=== PATIENT | female | born 1960 | race Caucasian/White ===

== ENCOUNTER → 2016-11-28 | Outpatient (CLI) | payer BC | LOC: LAB 15:43 | DX: E13.9 Other specified diabetes mellitus without complications (principal); E78.00 Pure hypercholesterolemia, unspecified ==

== ENCOUNTER 2017-11-26 15:21 | Observation (INO) | payer BC ==
[~2017-11-26] VITALS: Ht 175.3 cm; Wt 104.5 kg
[2017-11-26 16:10] LABS: URINE APPEARANCE CLEAR; URINE BILIRUBIN NEGATIVE (NEGATIVE); URINE BLOOD NEGATIVE (NEGATIVE); URINE COLOR YELLOW; URINE KETONE 2+ (NEGATIVE); URINE NITRATE NEGATIVE (NEGATIVE); URINE PROTEIN(semi-quant) NEGATIVE (NEGATIVE); URINE UROBILINOGEN NORMAL (NORMAL)
[2017-11-26 16:11] LABS: URINE LEUKOCYTE ESTERASE TRACE (NEGATIVE)
[2017-11-26 16:15] LABS: EOS # 0.1 (0.04-0.40); EOS % 0.9 % (1.0-5.0); HEMATOCRIT 38.2 % (37.0-47.0); HEMOGLOBIN 12.6 g/dL (12.5-16.0); LYMPH# 1.4 (1.50-4.00); MEAN CELL VOLUME 87 fl (78-100); MEAN CORPUSCULAR HEMOGLOBIN 29 pg (27-31); MEAN CORPUSCULAR HGB CONC 33 g/dL (33-37); MONO # 1.1 (0.20-0.80); NEU # 8.4 (1.40-6.50); PLATELET COUNT 258 K/mm3 (130-400); RED BLOOD COUNT 4.39 M/mm3 (4.10-5.30); RED CELL DISTRIBUTION WIDTH 12.8 % (11.5-14.5); WHITE BLOOD COUNT 10.9 K/mm3 (4.8-10.8)
[2017-11-26 16:35] LABS: ALBUMIN 3.9 g/dL (3.5-5.0); CALCIUM 8.8 mg/dL (8.4-10.2); POTASSIUM 4.2 mmol/L (3.6-5.0); TOTAL BILIRUBIN 0.8 mg/dL (0.2-1.3); TOTAL PROTEIN 6.7 g/dL (6.3-8.2)
[2017-11-26] MEDS ORDERED: GLIPIZIDE10 M2 PO (18:45)
[2017-11-26] MEDS ORDERED: NOVOLOG FLEX100 U/ML SQ (18:45)
[2017-11-26] MEDS ORDERED: ALLOPURINOL300 M1 PO (18:45)
[2017-11-26] MEDS ORDERED: METOPROLOL TAR100 M1 PO (18:45)
[2017-11-26] MEDS ORDERED: MELOXICAM7.5 MG PO (18:45)
[2017-11-26] MEDS ORDERED: METFORMIN HYD1000 MG PO (18:45)
[2017-11-26] MEDS ORDERED: AMITRIPTYLINE H10 M2 PO (18:45)
[2017-11-26] MEDS ORDERED: LANTUS SOLOS100 U/ML SQ (18:46)
[2017-11-26 19:31] VITALS: BP 178/101
[2017-11-26 19:37] VITALS: BP 178/101
[2017-11-26 19:46] VITALS: BP 178/101
[2017-11-26] MEDS ORDERED: LISINOPRIL40 MG PO (19:59)
[2017-11-26] MEDS ORDERED: AMLODIPINE BESYL5 MG PO (20:00)
[2017-11-26] MEDS ORDERED: LOVASTATIN20 M1 PO (20:00)
[2017-11-26] MEDS ORDERED: ASPIRIN E.C. 8181 MG PO (20:01)
[2017-11-26 20:34] LABS: CALCIUM 8.4 mg/dL (8.4-10.2); POTASSIUM 4.3 mmol/L (3.6-5.0)
[2017-11-26 22:52] VITALS: BP 180/86
[2017-11-27 00:37] LABS: URINE APPEARANCE HAZY; URINE BILIRUBIN NEGATIVE (NEGATIVE); URINE BLOOD NEGATIVE (NEGATIVE); URINE COLOR YELLOW; URINE KETONE 2+ (NEGATIVE); URINE LEUKOCYTE ESTERASE TRACE (NEGATIVE); URINE NITRATE NEGATIVE (NEGATIVE); URINE PROTEIN(semi-quant) NEGATIVE (NEGATIVE); URINE UROBILINOGEN NORMAL (NORMAL)
[2017-11-27 02:50] VITALS: BP 184/82
[2017-11-27 06:32] VITALS: BP 146/63
[2017-11-27 07:16] LABS: CALCIUM 8.3 mg/dL (8.4-10.2); POTASSIUM 3.7 mmol/L (3.6-5.0)
[2017-11-27 07:49] LABS: EOS # 0.2 (0.04-0.40); EOS % 1.7 % (1.0-5.0); HEMATOCRIT 33.1 % (37.0-47.0); HEMOGLOBIN 10.9 g/dL (12.5-16.0); LYMPH# 2.6 (1.50-4.00); MEAN CELL VOLUME 88 fl (78-100); MEAN CORPUSCULAR HEMOGLOBIN 29 pg (27-31); MEAN CORPUSCULAR HGB CONC 33 g/dL (33-37); MONO # 1.1 (0.20-0.80); NEU # 6.4 (1.40-6.50); PLATELET COUNT 262 K/mm3 (130-400); RED BLOOD COUNT 3.76 M/mm3 (4.10-5.30); RED CELL DISTRIBUTION WIDTH 12.9 % (11.5-14.5); WHITE BLOOD COUNT 10.3 K/mm3 (4.8-10.8)
[2017-11-27 07:54] LABS: ALBUMIN 3.1 g/dL (3.5-5.0); TOTAL BILIRUBIN 0.6 mg/dL (0.2-1.3); TOTAL PROTEIN 5.9 g/dL (6.3-8.2)
[2017-11-27] MEDS ORDERED: CIPRO500 M1 PO (08:32)
[2017-11-27] MEDS ORDERED: VIBRAMYCIN HYC100 MG PO (08:32)
[2017-11-27 09:17] LABS: URINE MUCUS PRESENT (NOT PRESENT)
[2017-11-28 08:40] LABS: URINE APPEARANCE CLEAR; URINE BILIRUBIN NEGATIVE (NEGATIVE); URINE BLOOD NEGATIVE (NEGATIVE); URINE COLOR YELLOW; URINE KETONE 1+ (NEGATIVE); URINE LEUKOCYTE ESTERASE NEGATIVE (NEGATIVE); URINE NITRATE NEGATIVE (NEGATIVE); URINE PROTEIN(semi-quant) NEGATIVE (NEGATIVE); URINE UROBILINOGEN NORMAL (NORMAL)
== END 2017-11-27 11:00 | disposition home or self-care (01) ==
LOC: ED 15:21 → MED/SURG 18:02
PROVIDERS: Family Medicine; Nurse Practitioner Primary Care; ADMIT Nurse Practitioner Family
DX: E11.10 Type 2 diabetes mellitus with ketoacidosis without coma (principal); L03.116 Cellulitis of left lower limb; S91.312A Laceration without foreign body, left foot, initial encounter; E11.42 Type 2 diabetes mellitus with diabetic polyneuropathy; W45.8XXA Other foreign body or object entering through skin, initial encounter; Z79.4 Long term (current) use of insulin; I10 Essential (primary) hypertension; E78.00 Pure hypercholesterolemia, unspecified; M10.9 Gout, unspecified; T38.3X6A Underdosing of insulin and oral hypoglycemic [antidiabetic] drugs, initial encounter; Z91.120 Patient's intentional underdosing of medication regimen due to financial hardship; Z89.421 Acquired absence of other right toe(s); Z79.899 Other long term (current) drug therapy; Z79.82 Long term (current) use of aspirin; Z88.0 Allergy status to penicillin; Z23 Encounter for immunization
CPT/HCPCS: 90715; G0378; J0696; J1815; J3480

== ENCOUNTER → 2017-12-16 | Outpatient (CLI) | payer BC ==
[2017-11-27 06:32] VITALS: BP 146/63
[~2017-12-16] MED LIST: ALLOPURINOL300 M1 PO; AMITRIPTYLINE H10 M2 PO; AMLODIPINE BESYL5 MG PO; ASPIRIN E.C. 8181 MG PO; CIPRO500 M1 PO; GLIPIZIDE10 M2 PO; INSULIN 70/3100 U/ML SQ; LANTUS SOLOS100 U/ML SQ; LISINOPRIL40 MG PO; LOVASTATIN20 M1 PO; MELOXICAM7.5 MG PO; METFORMIN HYD1000 MG PO; METOPROLOL TAR100 M1 PO; NOVOLOG FLEX100 U/ML SQ; VIBRAMYCIN HYC100 MG PO
== END ==
LOC: RAD 11:37
DX: R60.0 Localized edema (principal); M86.8X7 Other osteomyelitis, ankle and foot
CPT/HCPCS: A9585

== ENCOUNTER → 2017-12-18 | Outpatient (CLI) | payer BC ==
[~2017-12-18] VITALS: Ht 175.3 cm; Wt 104.5 kg
[2017-12-18 15:20] VITALS: BP 158/103
[2017-12-18 15:20] LABS: BASO # 0.1 (0.02-0.10); EOS # 0.3 (0.04-0.40); EOS % 5.2 % (1.0-5.0); HEMATOCRIT 39.4 % (37.0-47.0); HEMOGLOBIN 12.8 g/dL (12.5-16.0); LYMPH# 2.6 (1.50-4.00); MEAN CELL VOLUME 89 fl (78-100); MEAN CORPUSCULAR HEMOGLOBIN 29 pg (27-31); MEAN CORPUSCULAR HGB CONC 33 g/dL (33-37); MONO # 0.5 (0.20-0.80); PLATELET COUNT 357 K/mm3 (130-400); RED BLOOD COUNT 4.45 M/mm3 (4.10-5.30); RED CELL DISTRIBUTION WIDTH 13.5 % (11.5-14.5); WHITE BLOOD COUNT 6.5 K/mm3 (4.8-10.8)
[2017-12-18 15:25] LABS: ALBUMIN 4.2 g/dL (3.5-5.0); CALCIUM 9.1 mg/dL (8.4-10.2); POTASSIUM 4.3 mmol/L (3.6-5.0); TOTAL BILIRUBIN 0.8 mg/dL (0.2-1.3); TOTAL PROTEIN 7.2 g/dL (6.3-8.2)
[2017-12-18 15:57] LABS: URINE APPEARANCE CLEAR; URINE BILIRUBIN NEGATIVE (NEGATIVE); URINE BLOOD NEGATIVE (NEGATIVE); URINE COLOR YELLOW; URINE KETONE NEGATIVE (NEGATIVE); URINE LEUKOCYTE ESTERASE NEGATIVE (NEGATIVE); URINE NITRATE NEGATIVE (NEGATIVE); URINE PROTEIN(semi-quant) TRACE mg/dL (NEGATIVE); URINE UROBILINOGEN NORMAL (NORMAL)
== END ==
LOC: AMSURD 14:42
PROVIDERS: Family Medicine
DX: Z01.818 Encounter for other preprocedural examination (principal); E11.9 Type 2 diabetes mellitus without complications

== ENCOUNTER → 2017-12-27 | Outpatient (CLI) | payer BC ==
[2017-12-18 15:20] VITALS: BP 158/103
== END ==
LOC: CARDLAB 09:25 → CARDREHAB 10:42
DX: Z01.810 Encounter for preprocedural cardiovascular examination (principal); I44.7 Left bundle-branch block, unspecified; Z82.49 Family history of ischemic heart disease and other diseases of the circulatory system
CPT/HCPCS: A9500

== ENCOUNTER → 2018-02-07 | Outpatient (CLI) | payer BC ==
[2017-12-18 15:20] VITALS: BP 158/103
[2018-02-07 16:14] LABS: ALBUMIN 4.4 g/dL (3.5-5.0); CALCIUM 9.5 mg/dL (8.4-10.2); POTASSIUM 4.6 mmol/L (3.6-5.0); TOTAL BILIRUBIN 1.1 mg/dL (0.2-1.3); TOTAL PROTEIN 7.1 g/dL (6.3-8.2)
== END ==
LOC: LAB 15:43
PROVIDERS: Family Medicine
DX: Z01.812 Encounter for preprocedural laboratory examination (principal)

== ENCOUNTER → 2018-07-29 | Outpatient (CLI) | payer BC ==
[2017-12-18 15:20] VITALS: BP 158/103
== END ==
LOC: MAMMO 15:03
DX: Z12.31 Encounter for screening mammogram for malignant neoplasm of breast (principal)

== ENCOUNTER → 2018-08-08 | Outpatient (CLI) | payer BC ==
[2017-12-18 15:20] VITALS: BP 158/103
== END ==
LOC: RAD 16:10
DX: R50.9 Fever, unspecified (principal); R05 Cough

== ENCOUNTER → 2018-10-13 | Outpatient (CLI) | payer BC ==
[2017-12-18 15:20] VITALS: BP 158/103
[2018-10-13 14:48] LABS: BASO # 0.1 (0.02-0.10); EOS # 0.2 (0.04-0.40); EOS % 2.1 % (1.0-5.0); HEMATOCRIT 42.1 % (37.0-47.0); HEMOGLOBIN 13.9 g/dL (12.5-16.0); LYMPH# 2.7 (1.50-4.00); MEAN CELL VOLUME 85 fl (78-100); MEAN CORPUSCULAR HEMOGLOBIN 28 pg (27-31); MEAN CORPUSCULAR HGB CONC 33 g/dL (33-37); MEAN PLATELET VOLUME 9.9 fl (7.4-10.4); MONO # 0.7 (0.20-0.80); PLATELET COUNT 302 K/mm3 (130-400); RED BLOOD COUNT 4.94 M/mm3 (4.10-5.30); RED CELL DISTRIBUTION WIDTH 13.2 % (11.5-14.5); WHITE BLOOD COUNT 7.6 K/mm3 (4.8-10.8)
[2018-10-13 14:53] LABS: POTASSIUM 4.4 mmol/L (3.5-5.1)
[2018-10-13 14:54] LABS: CALCIUM 9.7 mg/dL (8.3-10.5)
[2018-10-13 14:56] LABS: TOTAL PROTEIN 7.2 g/dL (6.4-8.3)
[2018-10-13 14:58] LABS: TOTAL BILIRUBIN 0.9 mg/dL (0.2-1.2)
[2018-10-13 15:55] LABS: URINE APPEARANCE HAZY; URINE COLOR YELLOW
[2018-10-13 15:56] LABS: URINE BILIRUBIN NEGATIVE (NEGATIVE); URINE BLOOD TRACE (NEGATIVE); URINE GLUCOSE NEGATIVE (NEGATIVE); URINE KETONE NEGATIVE (NEGATIVE); URINE LEUKOCYTE ESTERASE 2+ (NEGATIVE); URINE MUCUS PRESENT (NOT PRESENT); URINE NITRATE NEGATIVE (NEGATIVE); URINE PROTEIN(semi-quant) 1+ mg/dL (NEGATIVE); URINE UROBILINOGEN NORMAL (NORMAL); URINE WBC >50 /hpf (0-3)
== END ==
LOC: LAB 14:25
PROVIDERS: Family Medicine
DX: Z00.00 Encounter for general adult medical examination without abnormal findings (principal); E55.9 Vitamin D deficiency, unspecified; E78.00 Pure hypercholesterolemia, unspecified; E11.9 Type 2 diabetes mellitus without complications; R30.0 Dysuria

== ENCOUNTER → 2018-10-27 | Outpatient (CLI) | payer BC ==
[2017-12-18 15:20] VITALS: BP 158/103
[2018-10-27 14:08] LABS: URINE APPEARANCE CLEAR; URINE COLOR YELLOW; URINE PROTEIN(semi-quant) NEGATIVE (NEGATIVE)
[2018-10-27 14:09] LABS: URINE BILIRUBIN NEGATIVE (NEGATIVE); URINE BLOOD NEGATIVE (NEGATIVE); URINE KETONE NEGATIVE (NEGATIVE); URINE LEUKOCYTE ESTERASE 1+ (NEGATIVE); URINE NITRATE NEGATIVE (NEGATIVE); URINE UROBILINOGEN NORMAL (NORMAL)
== END ==
LOC: LAB 13:37
PROVIDERS: Family Medicine
DX: R30.0 Dysuria (principal)

== ENCOUNTER 2018-12-03 18:37 | Emergency (ER) | payer BC ==
[~2018-12-03] VITALS: Ht 175.3 cm; Wt 97.3 kg
[2018-12-03 19:33] LABS: URINE APPEARANCE HAZY; URINE COLOR YELLOW; URINE PROTEIN(semi-quant) TRACE mg/dL (NEGATIVE)
[2018-12-03 19:34] LABS: URINE BILIRUBIN NEGATIVE (NEGATIVE); URINE BLOOD NEGATIVE (NEGATIVE); URINE KETONE NEGATIVE (NEGATIVE); URINE NITRATE NEGATIVE (NEGATIVE); URINE UROBILINOGEN NORMAL (NORMAL)
[2018-12-03 19:36] LABS: URINE LEUKOCYTE ESTERASE NEGATIVE (NEGATIVE)
[2018-12-03 19:56] LABS: EOS # 0.2 (0.04-0.40); EOS % 1.6 % (1.0-5.0); HEMATOCRIT 33.4 % (37.0-47.0); HEMOGLOBIN 10.6 g/dL (12.5-16.0); LYMPH# 2.5 (1.50-4.00); MEAN CELL VOLUME 81 fl (78-100); MEAN CORPUSCULAR HEMOGLOBIN 26 pg (27-31); MEAN CORPUSCULAR HGB CONC 32 g/dL (33-37); MONO # 0.5 (0.20-0.80); NEU # 5.9 (1.40-6.50); PLATELET COUNT 371 K/mm3 (130-400); RED BLOOD COUNT 4.13 M/mm3 (4.10-5.30); RED CELL DISTRIBUTION WIDTH 14.4 % (11.5-14.5); WHITE BLOOD COUNT 9.1 K/mm3 (4.8-10.8)
[2018-12-03 19:57] LABS: ALBUMIN 4.1 g/dL (3.5-5.0); POTASSIUM 4.4 mmol/L (3.5-5.1)
[2018-12-03 19:58] LABS: CALCIUM 9.5 mg/dL (8.3-10.5)
[2018-12-03 20:00] LABS: TOTAL PROTEIN 7.6 g/dL (6.4-8.3)
[2018-12-03 20:01] LABS: TOTAL BILIRUBIN 0.9 mg/dL (0.2-1.2)
[2018-12-03 20:08] LABS: MEAN PLATELET VOLUME 12.3 fl (7.4-10.4)
[2018-12-03] MEDS ORDERED: CYCLOBENZAPRINE10 M1 PO (22:13)
[2018-12-03 22:28] VITALS: BP 175/90
== END 2018-12-03 22:45 | disposition home or self-care (01) ==
LOC: ED 18:37
PROVIDERS: Physician Assistant
DX: E11.65 Type 2 diabetes mellitus with hyperglycemia (principal); I16.0 Hypertensive urgency; M54.9 Dorsalgia, unspecified; I10 Essential (primary) hypertension; M10.9 Gout, unspecified; Z79.4 Long term (current) use of insulin; Z90.710 Acquired absence of both cervix and uterus; Z90.49 Acquired absence of other specified parts of digestive tract; Z98.890 Other specified postprocedural states; Z88.0 Allergy status to penicillin; Z88.5 Allergy status to narcotic agent; Z79.82 Long term (current) use of aspirin
CPT/HCPCS: J1885; J2360; J2405; J3010; J7030

== ENCOUNTER 2019-02-27 02:12 | Emergency (ER) | payer BC ==
[~2019-02-27] VITALS: Ht 175.3 cm; Wt 104.5 kg
[~2019-02-27 02:12] MED LIST changes: +CYCLOBENZAPRINE10 M1 PO
[2019-02-27] MEDS ORDERED: HCTZ 25MG25 MG PO (02:25)
[2019-02-27 02:41] LABS: BASO # 0.1 (0.02-0.10); EOS # 0.1 (0.04-0.40); EOS % 1.1 % (1.0-5.0); HEMATOCRIT 42.8 % (37.0-47.0); MEAN CELL VOLUME 86 fl (78-100); MEAN CORPUSCULAR HEMOGLOBIN 28 pg (27-31); MEAN CORPUSCULAR HGB CONC 33 g/dL (33-37); MONO # 0.8 (0.20-0.80); NEU # 4.9 (1.40-6.50); PLATELET COUNT 332 K/mm3 (130-400); RED BLOOD COUNT 4.96 M/mm3 (4.10-5.30); RED CELL DISTRIBUTION WIDTH 12.6 % (11.5-14.5)
[2019-02-27 02:52] LABS: POTASSIUM 4.9 mmol/L (3.5-5.1)
[2019-02-27 02:53] LABS: ALBUMIN 4.3 g/dL (3.5-5.0)
[2019-02-27 02:54] LABS: CALCIUM 9.2 mg/dL (8.3-10.5)
[2019-02-27 02:56] LABS: TOTAL PROTEIN 7.4 g/dL (6.4-8.3)
[2019-02-27 04:13] LABS: URINE APPEARANCE HAZY; URINE BILIRUBIN NEGATIVE (NEGATIVE); URINE BLOOD NEGATIVE (NEGATIVE); URINE COLOR YELLOW; URINE KETONE NEGATIVE (NEGATIVE); URINE LEUKOCYTE ESTERASE 1+ (NEGATIVE); URINE NITRATE NEGATIVE (NEGATIVE); URINE PROTEIN(semi-quant) TRACE mg/dL (NEGATIVE); URINE UROBILINOGEN NORMAL (NORMAL)
[2019-02-27 05:15] VITALS: BP 194/104
== END 2019-02-27 05:15 | disposition short-term general hospital (02) ==
LOC: ED 02:12
PROVIDERS: Nurse Practitioner Family
DX: E11.10 Type 2 diabetes mellitus with ketoacidosis without coma (principal); E11.65 Type 2 diabetes mellitus with hyperglycemia; N39.0 Urinary tract infection, site not specified; E11.40 Type 2 diabetes mellitus with diabetic neuropathy, unspecified; I10 Essential (primary) hypertension; E78.5 Hyperlipidemia, unspecified; M10.9 Gout, unspecified; Z79.4 Long term (current) use of insulin; Z79.82 Long term (current) use of aspirin; Z89.421 Acquired absence of other right toe(s); Z90.710 Acquired absence of both cervix and uterus
CPT/HCPCS: A4216; J0696; J1815; J1885; J2405; J3480; J7030

== ENCOUNTER → 2019-03-17 | Outpatient (CLI) | payer BC ==
[2019-02-27 05:15] VITALS: BP 194/104
[~2019-03-17] MED LIST changes: +HCTZ 25MG25 MG PO
[2019-03-17 14:53] LABS: URINE APPEARANCE CLEAR; URINE BILIRUBIN NEGATIVE (NEGATIVE); URINE BLOOD NEGATIVE (NEGATIVE); URINE COLOR YELLOW; URINE KETONE NEGATIVE (NEGATIVE); URINE LEUKOCYTE ESTERASE TRACE (NEGATIVE); URINE NITRATE NEGATIVE (NEGATIVE); URINE PROTEIN(semi-quant) TRACE mg/dL (NEGATIVE); URINE UROBILINOGEN NORMAL (NORMAL)
== END ==
LOC: LAB 14:03
PROVIDERS: Family Medicine
DX: R39.9 Unspecified symptoms and signs involving the genitourinary system (principal)

== ENCOUNTER 2019-06-13 10:38 | Emergency (ER) | payer BC ==
[~2019-06-13] VITALS: Ht 175.3 cm; Wt 93.2 kg
[2019-06-13 11:03] LABS: EOS # 0.2 (0.04-0.40); EOS % 1.1 % (1.0-5.0); HEMATOCRIT 39.1 % (37.0-47.0); HEMOGLOBIN 12.3 g/dL (12.5-16.0); LYMPH# 1.9 (1.50-4.00); MEAN CELL VOLUME 87 fl (78-100); MEAN CORPUSCULAR HEMOGLOBIN 27 pg (27-31); MEAN CORPUSCULAR HGB CONC 32 g/dL (33-37); MEAN PLATELET VOLUME 9.8 fl (7.4-10.4); MONO # 1.5 (0.20-0.80); NEU # 10.3 (1.40-6.50); PLATELET COUNT 405 K/mm3 (130-400); RED BLOOD COUNT 4.51 M/mm3 (4.10-5.30); RED CELL DISTRIBUTION WIDTH 12.7 % (11.5-14.5); WHITE BLOOD COUNT 13.9 K/mm3 (4.8-10.8)
[2019-06-13 11:08] LABS: ALBUMIN 3.7 g/dL (3.5-5.0)
[2019-06-13 11:09] LABS: POTASSIUM 3.8 mmol/L (3.5-5.1)
[2019-06-13 11:10] LABS: CALCIUM 9.8 mg/dL (8.3-10.5)
[2019-06-13 11:11] LABS: TOTAL PROTEIN 7.4 g/dL (6.4-8.3)
[2019-06-13 11:13] LABS: TOTAL BILIRUBIN 0.6 mg/dL (0.2-1.2)
[2019-06-13] MEDS ORDERED: ZOFRAN ODT4 MG PO (13:22)
[2019-06-13 13:45] LABS: URINE APPEARANCE CLOUDY; URINE COLOR DK YELLOW; URINE PROTEIN(semi-quant) TRACE mg/dL (NEGATIVE)
[2019-06-13 13:46] LABS: URINE BILIRUBIN NEGATIVE (NEGATIVE); URINE BLOOD TRACE (NEGATIVE); URINE KETONE 1+ (NEGATIVE); URINE LEUKOCYTE ESTERASE TRACE (NEGATIVE); URINE MUCUS PRESENT (NOT PRESENT); URINE NITRATE NEGATIVE (NEGATIVE); URINE UROBILINOGEN NORMAL (NORMAL)
[2019-06-13 15:29] VITALS: BP 163/88
== END 2019-06-13 15:26 | disposition short-term general hospital (02) ==
LOC: ED 10:38
PROVIDERS: Family Medicine
DX: E11.628 Type 2 diabetes mellitus with other skin complications (principal); L02.611 Cutaneous abscess of right foot; L03.115 Cellulitis of right lower limb; R05 Cough; R50.9 Fever, unspecified; I10 Essential (primary) hypertension; Z79.4 Long term (current) use of insulin; Z90.710 Acquired absence of both cervix and uterus; Z90.89 Acquired absence of other organs; Z20.828 Contact with and (suspected) exposure to other viral communicable diseases
CPT/HCPCS: J2405; J3370; J7030; J7050

== ENCOUNTER → 2019-08-18 | Outpatient (CLI) | payer BC ==
[~2019-08-18] MED LIST changes: +ZOFRAN ODT4 MG PO
[2019-08-18 14:07] LABS: BASO # 0.1 (0.02-0.10); EOS # 0.3 (0.04-0.40); EOS % 4.3 % (1.0-5.0); HEMATOCRIT 35.7 % (37.0-47.0); HEMOGLOBIN 11.1 g/dL (12.5-16.0); LYMPH# 3.1 (1.50-4.00); MEAN CELL VOLUME 87 fl (78-100); MEAN CORPUSCULAR HEMOGLOBIN 27 pg (27-31); MEAN CORPUSCULAR HGB CONC 31 g/dL (33-37); MEAN PLATELET VOLUME 9.4 fl (7.4-10.4); MONO # 0.6 (0.20-0.80); NEU # 2.8 (1.40-6.50); PLATELET COUNT 386 K/mm3 (130-400); RED BLOOD COUNT 4.12 M/mm3 (4.10-5.30); RED CELL DISTRIBUTION WIDTH 14.9 % (11.5-14.5)
[2019-08-18 14:16] LABS: ALBUMIN 4.1 g/dL (3.5-5.0)
[2019-08-18 14:17] LABS: CALCIUM 9.4 mg/dL (8.3-10.5)
[2019-08-18 14:18] LABS: TOTAL PROTEIN 7.1 g/dL (6.4-8.3)
[2019-08-18 14:20] LABS: TOTAL BILIRUBIN 0.5 mg/dL (0.2-1.2)
[2019-08-18 14:57] LABS: ERYTHROCYTE SEDIMENTATION RATE 48 mm/hr (0-30)
== END ==
LOC: LAB 13:54
PROVIDERS: Internal Medicine Infectious Disease
DX: E11.610 Type 2 diabetes mellitus with diabetic neuropathic arthropathy (principal); E11.621 Type 2 diabetes mellitus with foot ulcer; E11.40 Type 2 diabetes mellitus with diabetic neuropathy, unspecified

== ENCOUNTER → 2019-09-01 | Outpatient (CLI) | payer BC ==
[2019-09-03 08:47] LABS: BASO # 0.1 (0.02-0.10); EOS # 0.2 (0.04-0.40); EOS % 3.9 % (1.0-5.0); HEMATOCRIT 36.1 % (37.0-47.0); HEMOGLOBIN 11.2 g/dL (12.5-16.0); LYMPH# 2.3 (1.50-4.00); MEAN CELL VOLUME 87 fl (78-100); MEAN CORPUSCULAR HEMOGLOBIN 27 pg (27-31); MEAN CORPUSCULAR HGB CONC 31 g/dL (33-37); MEAN PLATELET VOLUME 10.8 fl (7.4-10.4); MONO # 0.5 (0.20-0.80); PLATELET COUNT 407 K/mm3 (130-400); RED BLOOD COUNT 4.15 M/mm3 (4.10-5.30); RED CELL DISTRIBUTION WIDTH 14.9 % (11.5-14.5); WHITE BLOOD COUNT 6.2 K/mm3 (4.8-10.8)
[2019-09-03 10:45] LABS: ERYTHROCYTE SEDIMENTATION RATE 23 mm/hr (0-30)
[2019-09-03 11:23] LABS: CALCIUM 8.9 mg/dL (8.3-10.5); TOTAL BILIRUBIN 0.4 mg/dL (0.2-1.2)
[2019-09-03 11:24] LABS: POTASSIUM 6.6 mmol/L (3.5-5.1)
== END ==
LOC: LAB 16:22
PROVIDERS: Family Medicine
DX: E11.610 Type 2 diabetes mellitus with diabetic neuropathic arthropathy (principal); E11.621 Type 2 diabetes mellitus with foot ulcer; E11.40 Type 2 diabetes mellitus with diabetic neuropathy, unspecified

== ENCOUNTER → 2019-11-27 | Outpatient (CLI) | payer BC ==
[2019-11-27 16:20] LABS: BASO # 0.1 (0.02-0.10); EOS # 0.3 (0.04-0.40); EOS % 3.2 % (1.0-5.0); HEMATOCRIT 39.4 % (37.0-47.0); HEMOGLOBIN 12.4 g/dL (12.5-16.0); MEAN CELL VOLUME 86 fl (78-100); MEAN CORPUSCULAR HEMOGLOBIN 27 pg (27-31); MEAN CORPUSCULAR HGB CONC 32 g/dL (33-37); MEAN PLATELET VOLUME 9.4 fl (7.4-10.4); MONO # 0.8 (0.20-0.80); NEU # 3.8 (1.40-6.50); PLATELET COUNT 368 K/mm3 (130-400); RED BLOOD COUNT 4.57 M/mm3 (4.10-5.30); RED CELL DISTRIBUTION WIDTH 15.3 % (11.5-14.5); WHITE BLOOD COUNT 7.8 K/mm3 (4.8-10.8)
[2019-11-27 16:27] LABS: ALBUMIN 4.1 g/dL (3.4-4.8)
[2019-11-27 16:28] LABS: POTASSIUM 4.3 mmol/L (3.5-5.1)
[2019-11-27 16:29] LABS: CALCIUM 9.4 mg/dL (8.3-10.5)
[2019-11-27 16:30] LABS: TOTAL PROTEIN 7.2 g/dL (6.2-8.1)
[2019-11-27 16:32] LABS: TOTAL BILIRUBIN 0.6 mg/dL (0.2-1.2)
[2019-11-27 16:35] LABS: URINE APPEARANCE CLEAR; URINE BILIRUBIN NEGATIVE (NEGATIVE); URINE BLOOD TRACE (NEGATIVE); URINE COLOR YELLOW; URINE GLUCOSE NEGATIVE (NEGATIVE); URINE KETONE NEGATIVE (NEGATIVE); URINE LEUKOCYTE ESTERASE TRACE (NEGATIVE); URINE NITRATE NEGATIVE (NEGATIVE); URINE PROTEIN(semi-quant) TRACE mg/dL (NEGATIVE); URINE UROBILINOGEN NORMAL (NORMAL)
[2019-11-27 16:37] LABS: MAGNESIUM 1.8 mg/dL (1.60-2.60)
== END ==
LOC: AMSURD 16:03
PROVIDERS: Internal Medicine
DX: Z01.818 Encounter for other preprocedural examination (principal); E11.40 Type 2 diabetes mellitus with diabetic neuropathy, unspecified; E78.00 Pure hypercholesterolemia, unspecified

== ENCOUNTER → 2019-12-16 | Day surgery (SDC) | payer BC | LOC: MSO 07:34 | DX: E11.36 Type 2 diabetes mellitus with diabetic cataract (principal); H25.811 Combined forms of age-related cataract, right eye; E11.42 Type 2 diabetes mellitus with diabetic polyneuropathy; E78.00 Pure hypercholesterolemia, unspecified; I10 Essential (primary) hypertension; M19.90 Unspecified osteoarthritis, unspecified site; Z79.82 Long term (current) use of aspirin; Z79.84 Long term (current) use of oral hypoglycemic drugs; Z88.5 Allergy status to narcotic agent; Z88.0 Allergy status to penicillin; Z90.49 Acquired absence of other specified parts of digestive tract; Z90.710 Acquired absence of both cervix and uterus | CPT/HCPCS: 00142; J0171; J2250; V2632 ==

== ENCOUNTER → 2020-03-23 | Outpatient (CLI) | payer BC | LOC: LAB 10:54 | DX: N30.01 Acute cystitis with hematuria (principal) ==

== ENCOUNTER 2020-04-16 15:54 | Observation (INO) | payer BC ==
[2020-04-16 16:42] LABS: HEMATOCRIT 34.4 % (37.0-47.0); HEMOGLOBIN 11.1 g/dL (12.5-16.0); MEAN CELL VOLUME 87 fl (78-100); MEAN CORPUSCULAR HEMOGLOBIN 28 pg (27-31); MEAN CORPUSCULAR HGB CONC 32 g/dL (33-37); RED BLOOD COUNT 3.97 M/mm3 (4.10-5.30); RED CELL DISTRIBUTION WIDTH 14.2 % (11.5-14.5); WHITE BLOOD COUNT 9.3 K/mm3 (4.8-10.8)
[2020-04-16 16:43] LABS: BASO # 0.1 (0.02-0.10); EOS # 0.2 (0.04-0.40); EOS % 1.9 % (1.0-5.0); LYMPH# 2.1 (1.50-4.00); MEAN PLATELET VOLUME 10.1 fl (7.4-10.4); MONO # 0.9 (0.20-0.80); NEU # 6.1 (1.40-6.50); PLATELET COUNT 307 K/mm3 (130-400)
[2020-04-16 16:47] LABS: ALBUMIN 3.4 g/dL (3.4-4.8); POTASSIUM 4.6 mmol/L (3.5-5.1)
[2020-04-16 16:49] LABS: TOTAL PROTEIN 6.9 g/dL (6.2-8.1)
[2020-04-16 16:51] LABS: TOTAL BILIRUBIN 0.5 mg/dL (0.2-1.2)
[2020-04-16 16:55] LABS: URINE COLOR YELLOW
[2020-04-16 16:56] LABS: URINE APPEARANCE CLEAR
[2020-04-16 16:57] LABS: URINE BILIRUBIN NEGATIVE (NEGATIVE); URINE BLOOD TRACE (NEGATIVE); URINE KETONE 1+ (NEGATIVE); URINE LEUKOCYTE ESTERASE NEGATIVE (NEGATIVE); URINE NITRATE NEGATIVE (NEGATIVE); URINE PROTEIN(semi-quant) TRACE mg/dL (NEGATIVE); URINE UROBILINOGEN NORMAL (NORMAL); URINE WBC 16-30 /hpf (0-3)
[2020-04-16] MEDS ORDERED: LISINOPRIL20 MG PO (18:40)
[2020-04-16] MEDS ORDERED: LOPRESSOR 550 MG/TAB PO (18:43)
[2020-04-16] MEDS ORDERED: AMITRIPTYLINE H10 M2 PO (18:56)
[2020-04-16] MEDS ORDERED: INSULIN AS100 UNIT/3 SQ (18:58)
[2020-04-16] MEDS ORDERED: LEVEMIR FLEX100 U/ML SQ (18:59)
[2020-04-16] MEDS ORDERED: MELATONIN5 M3 PO (19:00)
[2020-04-16 19:11] LABS: POTASSIUM 4.3 mmol/L (3.5-5.1)
[2020-04-16] MEDS ORDERED: WOMEN'S DAILY F1 TAB PO (22:51)
[2020-04-17 01:27] VITALS: BP 135/76
[2020-04-17 05:51] VITALS: BP 153/73
[2020-04-17 08:33] LABS: POTASSIUM 4.3 mmol/L (3.5-5.1)
[2020-04-17 08:35] LABS: CALCIUM 8.8 mg/dL (8.3-10.5)
[2020-04-17 09:33] VITALS: BP 135/82
[2020-04-17 11:13] LABS: HEMATOCRIT 33.2 % (37.0-47.0); HEMOGLOBIN 10.7 g/dL (12.5-16.0); MEAN PLATELET VOLUME 10.3 fl (7.4-10.4); RED BLOOD COUNT 3.8 M/mm3 (4.10-5.30); RED CELL DISTRIBUTION WIDTH 14.2 % (11.5-14.5); WHITE BLOOD COUNT 8.9 K/mm3 (4.8-10.8)
[2020-04-17 13:47] VITALS: BP 165/90
[2020-04-17 17:21] VITALS: BP 166/88
[2020-04-17] MEDS ORDERED: CEPHALEXIN500 M1 PO (17:54)
[2020-05-19] MEDS ORDERED: VIBRAMYCIN HYC100 MG PO (08:55)
== END 2020-04-17 18:48 | disposition home or self-care (01) ==
LOC: ED 15:54 → MED/SURG 22:02
PROVIDERS: ADMIT Family Medicine
DX: E11.10 Type 2 diabetes mellitus with ketoacidosis without coma (principal); E11.42 Type 2 diabetes mellitus with diabetic polyneuropathy; E11.621 Type 2 diabetes mellitus with foot ulcer; L97.519 Non-pressure chronic ulcer of other part of right foot with unspecified severity; R82.81 Pyuria; I10 Essential (primary) hypertension; Z90.49 Acquired absence of other specified parts of digestive tract; M10.9 Gout, unspecified
CPT/HCPCS: G0378; J0696; J1815; J7030

== ENCOUNTER → 2020-10-18 | Outpatient (CLI) | payer BC ==
[~2020-10-18] MED LIST changes: +CEPHALEXIN500 M1 PO; +INSULIN AS100 UNIT/3 SQ; +LEVEMIR FLEX100 U/ML SQ; +LISINOPRIL20 MG PO; +LOPRESSOR 550 MG/TAB PO; +MELATONIN5 M3 PO; +WOMEN'S DAILY F1 TAB PO
== END ==
LOC: RAD 14:00
DX: E11.9 Type 2 diabetes mellitus without complications (principal); T14.90XA Injury, unspecified, initial encounter

== ENCOUNTER → 2021-01-30 | Outpatient (CLI) | payer BC ==
[2021-01-30 15:44] LABS: BASO # 0.08 K/mm3 (0.02-0.10); EOS # 0.26 K/mm3 (0.04-0.40); EOS % 2.4 % (1.0-5.0); HEMATOCRIT 28.2 % (37.0-47.0); HEMOGLOBIN 8.5 g/dL (12.5-16.0); LYMPH# 3.06 K/mm3 (1.50-4.00); MEAN CELL VOLUME 87 fl (78-100); MEAN CORPUSCULAR HEMOGLOBIN 26 pg (27-31); MEAN CORPUSCULAR HGB CONC 30 g/dL (33-37); MEAN PLATELET VOLUME 8.9 fl (7.4-10.4); MONO # 0.89 K/mm3 (0.20-0.80); NEU # 6.69 K/mm3 (1.40-6.50); PLATELET COUNT 482 K/mm3 (130-400); RED BLOOD COUNT 3.26 M/mm3 (4.10-5.30)
[2021-01-30 15:52] LABS: ALBUMIN 4.1 g/dL (3.4-4.8); POTASSIUM 4.7 mmol/L (3.5-5.1)
[2021-01-30 15:53] LABS: CALCIUM 9.1 mg/dL (8.3-10.5)
[2021-01-30 15:55] LABS: TOTAL PROTEIN 7.1 g/dL (6.2-8.1)
[2021-01-30 15:56] LABS: TOTAL BILIRUBIN 0.4 mg/dL (0.2-1.2)
== END ==
LOC: LAB 15:26
PROVIDERS: Family Medicine
DX: I10 Essential (primary) hypertension (principal); E13.621 Other specified diabetes mellitus with foot ulcer; D64.9 Anemia, unspecified

== ENCOUNTER → 2021-02-22 | Outpatient (CLI) | payer BC ==
[2021-02-22 18:04] LABS: BASO # 0.08 K/mm3 (0.02-0.10); EOS # 0.19 K/mm3 (0.04-0.40); EOS % 1.6 % (1.0-5.0); MEAN CELL VOLUME 79 fl (78-100); MEAN CORPUSCULAR HEMOGLOBIN 24 pg (27-31); MEAN CORPUSCULAR HGB CONC 30 g/dL (33-37); MEAN PLATELET VOLUME 8.9 fl (7.4-10.4); MONO # 0.93 K/mm3 (0.20-0.80); NEU # 7.29 K/mm3 (1.40-6.50); PLATELET COUNT 527 K/mm3 (130-400); RED BLOOD COUNT 3.82 M/mm3 (4.10-5.30); RED CELL DISTRIBUTION WIDTH 16.2 % (11.5-14.5); WHITE BLOOD COUNT 11.6 K/mm3 (4.8-10.8)
[2021-02-22 18:27] LABS: ALBUMIN 4.1 g/dL (3.4-4.8); POTASSIUM 5.2 mmol/L (3.5-5.1)
[2021-02-22 18:28] LABS: CALCIUM 9.5 mg/dL (8.3-10.5)
[2021-02-22 18:29] LABS: TOTAL PROTEIN 8.1 g/dL (6.2-8.1)
[2021-02-22 18:31] LABS: TOTAL BILIRUBIN 0.6 mg/dL (0.2-1.2)
== END ==
LOC: LAB 17:49
PROVIDERS: Family Medicine
DX: R53.83 Other fatigue (principal)

== ENCOUNTER → 2021-05-01 | Outpatient (CLI) | payer BC ==
[2021-05-01 18:05] LABS: BASO # 0.07 K/mm3 (0.02-0.10); EOS # 0.19 K/mm3 (0.04-0.40); EOS % 2.1 % (1.0-5.0); HEMATOCRIT 32.4 % (37.0-47.0); HEMOGLOBIN 9.4 g/dL (12.5-16.0); MEAN CELL VOLUME 72 fl (78-100); MEAN CORPUSCULAR HEMOGLOBIN 21 pg (27-31); MEAN CORPUSCULAR HGB CONC 29 g/dL (33-37); MONO # 0.64 K/mm3 (0.20-0.80); NEU # 5.92 K/mm3 (1.40-6.50); PLATELET COUNT 452 K/mm3 (130-400); RED BLOOD COUNT 4.48 M/mm3 (4.10-5.30); RED CELL DISTRIBUTION WIDTH 17.9 % (11.5-14.5); WHITE BLOOD COUNT 9.1 K/mm3 (4.8-10.8)
[2021-05-01 19:36] LABS: POTASSIUM 5.7 mmol/L (3.5-5.1)
[2021-05-01 19:38] LABS: CALCIUM 9.6 mg/dL (8.3-10.5)
[2021-05-01 19:39] LABS: TOTAL PROTEIN 7.3 g/dL (6.2-8.1)
[2021-05-01 19:41] LABS: TOTAL BILIRUBIN 0.4 mg/dL (0.2-1.2)
== END ==
LOC: LAB 16:37
PROVIDERS: Family Medicine
DX: I10 Essential (primary) hypertension (principal); M19.90 Unspecified osteoarthritis, unspecified site; E13.621 Other specified diabetes mellitus with foot ulcer; M10.9 Gout, unspecified; E78.00 Pure hypercholesterolemia, unspecified; E66.01 Morbid (severe) obesity due to excess calories; D50.9 Iron deficiency anemia, unspecified; Z91.19 Patient's noncompliance with other medical treatment and regimen; Z89.431 Acquired absence of right foot

== ENCOUNTER → 2021-08-04 | Outpatient (CLI) | payer BC | LOC: RAD 08-01 09:00 | DX: I12.9 Hypertensive chronic kidney disease with stage 1 through stage 4 chronic kidney disease, or unspecified chronic kidney disease (principal); E11.22 Type 2 diabetes mellitus with diabetic chronic kidney disease; N18.32 Chronic kidney disease, stage 3b; D63.1 Anemia in chronic kidney disease; E11.21 Type 2 diabetes mellitus with diabetic nephropathy ==

== ENCOUNTER → 2021-08-14 | Outpatient (CLI) | payer BC ==
[2021-08-14 16:24] LABS: BASO # 0.04 K/mm3 (0.02-0.10); EOS # 0.21 K/mm3 (0.04-0.40); EOS % 2.7 % (1.0-5.0); HEMATOCRIT 40.1 % (37.0-47.0); HEMOGLOBIN 12.4 g/dL (12.5-16.0); LYMPH# 2.98 K/mm3 (1.50-4.00); MEAN CELL VOLUME 86 fl (78-100); MEAN CORPUSCULAR HEMOGLOBIN 26 pg (27-31); MEAN CORPUSCULAR HGB CONC 31 g/dL (33-37); MEAN PLATELET VOLUME 8.8 fl (7.4-10.4); MONO # 0.59 K/mm3 (0.20-0.80); NEU # 3.95 K/mm3 (1.40-6.50); PLATELET COUNT 384 K/mm3 (130-400); RED BLOOD COUNT 4.69 M/mm3 (4.10-5.30); RED CELL DISTRIBUTION WIDTH 16.9 % (11.5-14.5); WHITE BLOOD COUNT 7.8 K/mm3 (4.8-10.8)
[2021-08-14 16:57] LABS: POTASSIUM 4.8 mmol/L (3.5-5.1)
[2021-08-14 16:58] LABS: CALCIUM 9.9 mg/dL (8.3-10.5)
[2021-08-14 17:01] LABS: TOTAL BILIRUBIN 0.4 mg/dL (0.2-1.2)
== END ==
LOC: LAB 16:11
PROVIDERS: Internal Medicine Nephrology
DX: I12.9 Hypertensive chronic kidney disease with stage 1 through stage 4 chronic kidney disease, or unspecified chronic kidney disease (principal); E11.21 Type 2 diabetes mellitus with diabetic nephropathy; E11.22 Type 2 diabetes mellitus with diabetic chronic kidney disease; N18.32 Chronic kidney disease, stage 3b; D63.1 Anemia in chronic kidney disease

== ENCOUNTER → 2021-11-06 | Outpatient (CLI) | payer BC | LOC: RAD 15:02 | DX: E11.621 Type 2 diabetes mellitus with foot ulcer (principal); L97.412 Non-pressure chronic ulcer of right heel and midfoot with fat layer exposed; Z89.431 Acquired absence of right foot ==

== ENCOUNTER → 2021-12-12 | Outpatient (CLI) | payer BC ==
[2021-12-12 16:20] LABS: BASO # 0.07 K/mm3 (0.02-0.10); EOS # 0.19 K/mm3 (0.04-0.40); EOS % 2.3 % (1.0-5.0); HEMATOCRIT 38.5 % (37.0-47.0); HEMOGLOBIN 12.3 g/dL (12.5-16.0); LYMPH# 2.87 K/mm3 (1.50-4.00); MEAN CELL VOLUME 89 fl (78-100); MEAN CORPUSCULAR HEMOGLOBIN 28 pg (27-31); MEAN CORPUSCULAR HGB CONC 32 g/dL (33-37); MEAN PLATELET VOLUME 9.7 fl (7.4-10.4); MONO # 0.55 K/mm3 (0.20-0.80); NEU # 4.66 K/mm3 (1.40-6.50); PLATELET COUNT 392 K/mm3 (130-400); RED BLOOD COUNT 4.35 M/mm3 (4.10-5.30); WHITE BLOOD COUNT 8.4 K/mm3 (4.8-10.8)
== END ==
LOC: LAB 16:03
PROVIDERS: Family Medicine
DX: Z23 Encounter for immunization (principal); M10.9 Gout, unspecified; I10 Essential (primary) hypertension; D50.9 Iron deficiency anemia, unspecified; E66.01 Morbid (severe) obesity due to excess calories; E78.00 Pure hypercholesterolemia, unspecified; M14.679 Charcot's joint, unspecified ankle and foot; M19.90 Unspecified osteoarthritis, unspecified site; E11.40 Type 2 diabetes mellitus with diabetic neuropathy, unspecified; Z91.199 Patient's noncompliance with other medical treatment and regimen due to unspecified reason

== ENCOUNTER → 2022-01-26 | Outpatient (CLI) | payer BC ==
[~2022-01-26] MED LIST changes: +CEFDINIR300 MG PO; +ONDANSETRON HYDR4 MG PO; +PYRIDIUM100 M1 PO
[2022-01-26 17:17] LABS: BASO # 0.11 K/mm3 (0.02-0.10); EOS # 0.22 K/mm3 (0.04-0.40); EOS % 2.4 % (1.0-5.0); HEMATOCRIT 38.2 % (37.0-47.0); HEMOGLOBIN 12.2 g/dL (12.5-16.0); LYMPH# 2.92 K/mm3 (1.50-4.00); MEAN CELL VOLUME 89 fl (78-100); MEAN CORPUSCULAR HEMOGLOBIN 28 pg (27-31); MEAN CORPUSCULAR HGB CONC 32 g/dL (33-37); MEAN PLATELET VOLUME 9.8 fl (7.4-10.4); MONO # 0.89 K/mm3 (0.20-0.80); NEU # 5.11 K/mm3 (1.40-6.50); PLATELET COUNT 541 K/mm3 (130-400); RED CELL DISTRIBUTION WIDTH 14.4 % (11.5-14.5); WHITE BLOOD COUNT 9.3 K/mm3 (4.8-10.8)
[2022-01-26 17:39] LABS: URINE APPEARANCE HAZY; URINE BILIRUBIN NEGATIVE (NEGATIVE); URINE BLOOD 50 ery/uL (NEGATIVE); URINE COLOR YELLOW; URINE KETONE NEGATIVE (NEGATIVE); URINE LEUKOCYTE ESTERASE 2+ (NEGATIVE); URINE NITRATE NEGATIVE (NEGATIVE); URINE PROTEIN(semi-quant) 3+ (NEGATIVE); URINE UROBILINOGEN NORMAL (NORMAL); URINE WBC >50 /hpf (0-3)
[2022-01-26 17:40] LABS: CLUE CELLS NOT OBSERVED (Not Observd); URINE MUCUS PRESENT (NOT PRESENT)
== END ==
LOC: LAB 17:03
PROVIDERS: Nurse Practitioner
DX: D50.9 Iron deficiency anemia, unspecified (principal); N89.8 Other specified noninflammatory disorders of vagina
CPT/HCPCS: Q0111

== ENCOUNTER → 2023-03-14 | Outpatient (CLI) | payer MEDICARE ==
[2023-03-14 14:06] LABS: CALCIUM 9.5 mg/dL (8.3-10.5)
== END ==
LOC: LAB 13:29
PROVIDERS: Family Medicine
DX: N39.0 Urinary tract infection, site not specified (principal); I12.9 Hypertensive chronic kidney disease with stage 1 through stage 4 chronic kidney disease, or unspecified chronic kidney disease; N18.32 Chronic kidney disease, stage 3b

== ENCOUNTER → 2023-05-03 | Outpatient (CLI) | payer MEDICARE ==
[2023-05-03 16:00] LABS: BASO # 0.06 K/mm3 (0.02-0.10); EOS # 0.24 K/mm3 (0.04-0.40); EOS % 2.9 % (1.0-5.0); HEMATOCRIT 40.5 % (37.0-47.0); HEMOGLOBIN 12.6 g/dL (12.5-16.0); LYMPH# 2.63 K/mm3 (1.50-4.00); MEAN CELL VOLUME 90 fl (78-100); MEAN CORPUSCULAR HEMOGLOBIN 28 pg (27-31); MEAN CORPUSCULAR HGB CONC 31 g/dL (33-37); MEAN PLATELET VOLUME 10.2 fl (7.4-10.4); MONO # 0.66 K/mm3 (0.20-0.80); PLATELET COUNT 365 K/mm3 (130-400); RED BLOOD COUNT 4.48 M/mm3 (4.10-5.30); RED CELL DISTRIBUTION WIDTH 14.4 % (11.5-14.5); WHITE BLOOD COUNT 8.2 K/mm3 (4.8-10.8)
== END ==
LOC: LAB 15:38
PROVIDERS: Nurse Practitioner
DX: Z12.31 Encounter for screening mammogram for malignant neoplasm of breast (principal); M51.36 Other intervertebral disc degeneration, lumbar region; M41.86 Other forms of scoliosis, lumbar region

== ENCOUNTER → 2023-08-29 | Outpatient (CLI) | payer MEDICARE ==
[2023-08-29 16:35] LABS: CALCIUM 9.5 mg/dL (8.3-10.5)
== END ==
LOC: LAB 16:13
PROVIDERS: Internal Medicine Nephrology
DX: I12.9 Hypertensive chronic kidney disease with stage 1 through stage 4 chronic kidney disease, or unspecified chronic kidney disease (principal); N18.32 Chronic kidney disease, stage 3b

== ENCOUNTER → 2023-10-29 | Outpatient (CLI) | payer MEDICARE ==
[2023-10-29 15:28] LABS: BASO # 0.08 K/mm3 (0.02-0.10); EOS # 0.34 K/mm3 (0.04-0.40); EOS % 4.3 % (1.0-5.0); HEMATOCRIT 36.6 % (37.0-47.0); HEMOGLOBIN 11.5 g/dL (12.5-16.0); LYMPH# 2.96 K/mm3 (1.50-4.00); MEAN CELL VOLUME 89 fl (78-100); MEAN CORPUSCULAR HEMOGLOBIN 28 pg (27-31); MEAN CORPUSCULAR HGB CONC 31 g/dL (33-37); MONO # 0.58 K/mm3 (0.20-0.80); NEU # 3.91 K/mm3 (1.40-6.50); PLATELET COUNT 450 K/mm3 (130-400); RED BLOOD COUNT 4.12 M/mm3 (4.10-5.30); RED CELL DISTRIBUTION WIDTH 15.3 % (11.5-14.5); WHITE BLOOD COUNT 7.9 K/mm3 (4.8-10.8)
[2023-10-29 15:41] LABS: ALBUMIN 3.6 g/dL (3.4-4.8)
[2023-10-29 15:42] LABS: CALCIUM 9.8 mg/dL (8.3-10.5)
[2023-10-29 15:43] LABS: TOTAL PROTEIN 6.7 g/dL (6.2-8.1)
[2023-10-29 15:45] LABS: TOTAL BILIRUBIN 0.4 mg/dL (0.2-1.2)
== END ==
LOC: LAB 14:35
PROVIDERS: Family Medicine
DX: D50.9 Iron deficiency anemia, unspecified (principal); I10 Essential (primary) hypertension; E78.00 Pure hypercholesterolemia, unspecified; E13.621 Other specified diabetes mellitus with foot ulcer; M10.9 Gout, unspecified

== ENCOUNTER 2023-11-07 14:28 | Outpatient (RCR) | payer MEDICARE | END 2023-11-18 | disposition home or self-care (01) | LOC: PT | DX: M62.81 Muscle weakness (generalized) (principal) ==

== ENCOUNTER 2023-11-20 08:00 | Outpatient (RCR) | payer MEDICARE | END 2023-12-19 | disposition home or self-care (01) | LOC: PT | DX: M62.81 Muscle weakness (generalized) (principal) ==

== ENCOUNTER → 2023-12-12 | Outpatient (CLI) | payer MEDICARE ==
[2023-12-12 15:50] LABS: BASO # 0.08 K/mm3 (0.02-0.10); EOS # 0.36 K/mm3 (0.04-0.40); EOS % 4.3 % (1.0-5.0); HEMATOCRIT 38.2 % (37.0-47.0); HEMOGLOBIN 11.7 g/dL (12.5-16.0); LYMPH# 2.59 K/mm3 (1.50-4.00); MEAN CELL VOLUME 90 fl (78-100); MEAN CORPUSCULAR HEMOGLOBIN 28 pg (27-31); MEAN CORPUSCULAR HGB CONC 31 g/dL (33-37); MEAN PLATELET VOLUME 9.9 fl (7.4-10.4); MONO # 0.48 K/mm3 (0.20-0.80); NEU # 4.89 K/mm3 (1.40-6.50); PLATELET COUNT 371 K/mm3 (130-400); RED BLOOD COUNT 4.23 M/mm3 (4.10-5.30); RED CELL DISTRIBUTION WIDTH 16.1 % (11.5-14.5); WHITE BLOOD COUNT 8.4 K/mm3 (4.8-10.8)
[2023-12-12 16:02] LABS: CALCIUM 8.9 mg/dL (8.3-10.5)
== END ==
LOC: LAB 15:31
PROVIDERS: Internal Medicine Infectious Disease
DX: E11.621 Type 2 diabetes mellitus with foot ulcer (principal); L97.412 Non-pressure chronic ulcer of right heel and midfoot with fat layer exposed; I12.9 Hypertensive chronic kidney disease with stage 1 through stage 4 chronic kidney disease, or unspecified chronic kidney disease; E11.22 Type 2 diabetes mellitus with diabetic chronic kidney disease; N18.32 Chronic kidney disease, stage 3b; I73.9 Peripheral vascular disease, unspecified

== ENCOUNTER → 2023-12-19 | Outpatient (CLI) | payer MEDICARE ==
[2023-12-19 14:12] LABS: BASO # 0.07 K/mm3 (0.02-0.10); EOS # 0.26 K/mm3 (0.04-0.40); EOS % 3.4 % (1.0-5.0); HEMATOCRIT 36.8 % (37.0-47.0); HEMOGLOBIN 11.6 g/dL (12.5-16.0); MEAN CELL VOLUME 89 fl (78-100); MEAN CORPUSCULAR HEMOGLOBIN 28 pg (27-31); MEAN CORPUSCULAR HGB CONC 32 g/dL (33-37); MEAN PLATELET VOLUME 9.9 fl (7.4-10.4); MONO # 0.52 K/mm3 (0.20-0.80); NEU # 3.84 K/mm3 (1.40-6.50); PLATELET COUNT 417 K/mm3 (130-400); RED BLOOD COUNT 4.14 M/mm3 (4.10-5.30); RED CELL DISTRIBUTION WIDTH 15.9 % (11.5-14.5); WHITE BLOOD COUNT 7.6 K/mm3 (4.8-10.8)
[2023-12-19 14:17] LABS: ALBUMIN 3.7 g/dL (3.4-4.8)
[2023-12-19 14:19] LABS: TOTAL PROTEIN 6.7 g/dL (6.2-8.1)
[2023-12-19 14:22] LABS: TOTAL BILIRUBIN 0.4 mg/dL (0.2-1.2)
== END ==
LOC: LAB 13:50
PROVIDERS: Family Medicine
DX: I12.9 Hypertensive chronic kidney disease with stage 1 through stage 4 chronic kidney disease, or unspecified chronic kidney disease (principal); N18.32 Chronic kidney disease, stage 3b; E13.621 Other specified diabetes mellitus with foot ulcer; D50.9 Iron deficiency anemia, unspecified; E78.00 Pure hypercholesterolemia, unspecified; M10.9 Gout, unspecified

== ENCOUNTER 2023-12-20 08:00 | Outpatient (RCR) | payer MEDICARE | END 2024-01-18 | LOC: PT | DX: M62.81 Muscle weakness (generalized) (principal) ==

== ENCOUNTER → 2024-04-15 | Outpatient (CLI) | payer MEDICARE ==
[2024-04-15 15:52] LABS: ALBUMIN 3.3 g/dL (3.4-4.8)
[2024-04-15 15:54] LABS: CALCIUM 9.3 mg/dL (8.3-10.5)
[2024-04-15 15:55] LABS: TOTAL PROTEIN 6.5 g/dL (6.2-8.1)
[2024-04-15 15:57] LABS: TOTAL BILIRUBIN 0.5 mg/dL (0.2-1.2)
[2024-04-15 23:09] LABS: IGM,SERUM 41 mg/dL (33-293); IMMUNOGLOBULIN A 210 mg/dL (69-517); IMMUNOGLOBULIN G 505 mg/dL (552-1631)
[2024-04-16 00:38] LABS: COMPLEMENT C3 167 mg/dL (83-193); COMPLEMENT-C4 39 mg/dL (15-57)
[2024-04-16 09:42] LABS: ANA SCREEN with REFLEX Negative (Negative)
== END ==
LOC: LAB 15:08
PROVIDERS: Internal Medicine Nephrology
DX: I12.9 Hypertensive chronic kidney disease with stage 1 through stage 4 chronic kidney disease, or unspecified chronic kidney disease (principal); N18.32 Chronic kidney disease, stage 3b; E87.5 Hyperkalemia; R80.9 Proteinuria, unspecified

== ENCOUNTER → 2024-05-06 | Outpatient (CLI) | payer MEDICARE ==
[~2024-05-06] VITALS: Ht 175.3 cm; Wt 104.6 kg
[~2024-05-06] MED LIST changes: +ATORVASTATIN CA40 MG PO; +CLOPIDOGREL75 M2 PO; +FARXIGA10 MG PO; +FERROUS SU325 MG/TAB PO; +LYRICA 25MG CAP25 MG PO; +PANTOPRAZOLE SO40 MG PO; +VITAMIN B12 781 TAB PO; +VITAMIN D325 MC8 PO
[2024-05-06 11:41] VITALS: BP 195/93
[2024-05-06 14:45] VITALS: BP 171/93
== END ==
LOC: AMSURD 11:25 → EDSTATUS 11:35
DX: R53.1 Weakness (principal)
CPT/HCPCS: J1756; J7050